=== PATIENT | female | born 1960 | race Caucasian/White ===

== ENCOUNTER 2019-01-04 12:33 | Emergency (ER) | payer MEDICAID ==
[~2019-01-04] VITALS: Ht 167.6 cm; Wt 72.7 kg
[2019-01-04 13:45] LABS: BASO # 0.1 (0.0-0.2); BASO % 0.6 % (0.0-2.0); EOS # 0.1 (0.0-0.7); EOS % 1.2 % (0-4.0); GRAN # 5.6 (1.4-6.5); HEMATOCRIT 44.3 % (37.0-47.0); HEMOGLOBIN 14.7 g/dl (12.5-16.0); LYMPH # 1.8 (1.2-3.4); LYMPH % 22.7 % (20.0-51.0); MEAN CELL VOLUME 94 fl (80.0-100.0); MEAN CORPUSCULAR HEMOGLOBIN 31 pg (27.0-31.0); MEAN CORPUSCULAR HGB CONC 33 g/dl (33.0-37.0); MEAN PLATELET VOLUME 11.4 fl (7.4-10.4); MONO # 0.5 (0.1-0.6); MONO % 6.3 % (1.7-9.3); PLATELET COUNT 145 K/mm3 (130-400); RED BLOOD COUNT 4.73 M/mm3 (4.10-5.30); REDCELL DISTRIBUTION WIDTH-CV 15.6 % (11.5-14.5)
[2019-01-04 13:50] LABS: ALBUMIN 4.2 gm/dL (3.5-5.0); BILIRUBIN,TOTAL 0.6 mg/dL (0.0-1.0); CALCIUM 9.5 mg/dL (8.4-10.2); CREATININE, serum 0.53 (0.52-1.25); POTASSIUM 3.9 mmol/L (3.4-5.0); TOTAL PROTEIN 7.1 gm/dL (6.4-8.2)
[2019-01-04 15:00] LABS: COLLECTION METHOD CLEAN CATCH
[2019-01-04 15:07] LABS: MUCOUS Present /lpf; PH 5 (5-8); URINE APPEARANCE Hazy; URINE BACTERIA Rare /hpf; URINE BILIRUBIN Negative (NEGATIVE); URINE BLOOD Negative (NEGATIVE); URINE COLOR Yellow; URINE GLUCOSE 3+ (NEGATIVE); URINE KETONE 2+ (NEGATIVE); URINE LEUKOCYTE ESTERASE Negative (NEGATIVE); URINE NITRATE Negative (NEGATIVE); URINE PROTEIN(semi-quant) Negative (NEGATIVE); URINE UROBILINOGEN Negative (NEGATIVE)
[2019-01-04 15:21] LABS: TRICYCLIC ANTIDEPRESS URINE NEGATIVE
[2019-01-04] MEDS ORDERED: EFFEXOR XR75 MG/CAP PO (15:37)
[2019-01-04] MEDS ORDERED: LASIX 20MG TABL20 MG PO (15:38)
[2019-01-04] MEDS ORDERED: COREG12.5 MG PO (15:38)
[2019-01-04] MEDS ORDERED: NEURONTIN300 MG/CAP PO (15:38)
[2019-01-04] MEDS ORDERED: LIPITOR 40MG TA40 MG PO (15:38)
[2019-01-04] MEDS ORDERED: ELIQUIS 5MG PO (15:38)
[2019-01-04] MEDS ORDERED: XTAMPZA ER9 MG PO (15:39)
[2019-01-04] MEDS ORDERED: BASAGLAR K100 UNIT/1 SQ (15:39)
[2019-01-04] MEDS ORDERED: KLONOPIN 0.5MG0.5 MG PO (15:39)
[2019-01-04] MEDS ORDERED: MIRAPEX0.5 MG PO (15:40)
[2019-01-04] MEDS ORDERED: NEURONTIN600 MG/TAB PO (15:40)
[2019-01-06 22:59] VITALS: BP 150/80; TEMP 18
[2019-01-07 10:42] VITALS: PULSE 75
== END 2019-01-07 10:45 | disposition home or self-care (01) ==
LOC: COL.ER 12:38
PROVIDERS: Family Medicine
DX: F23 Brief psychotic disorder (principal); E10.9 Type 1 diabetes mellitus without complications; Z79.01 Long term (current) use of anticoagulants; Z79.4 Long term (current) use of insulin
CPT/HCPCS: J1815; J7030

== ENCOUNTER 2019-02-19 11:27 | Inpatient (IN) | payer MEDICARE, MEDICAID ==
[~2019-02-19] VITALS: Ht 162.6 cm; Wt 91.6 kg
[~2019-02-19 11:27] MED LIST: BASAGLAR K100 UNIT/1 SQ; COREG12.5 MG PO; EFFEXOR XR75 MG/CAP PO; ELIQUIS 5MG PO; KLONOPIN 0.5MG0.5 MG PO; LASIX 20MG TABL20 MG PO; LIPITOR 40MG TA40 MG PO; MIRAPEX0.5 MG PO; NEURONTIN300 MG/CAP PO; NEURONTIN600 MG/TAB PO; XTAMPZA ER9 MG PO
[2019-02-19 12:14] LABS: BASO # 0.1 (0.0-0.2); BASO % 0.5 % (0.0-2.0); EOS % 0.2 % (0-4.0); GRAN # 15.1 (1.4-6.5); GRAN % 87.2 % (42.2-75.2); HEMATOCRIT 51.2 % (37.0-47.0); HEMOGLOBIN 16.3 g/dl (12.5-16.0); LYMPH # 1.3 (1.2-3.4); LYMPH % 7.2 % (20.0-51.0); MEAN CELL VOLUME 101 fl (80.0-100.0); MEAN CORPUSCULAR HEMOGLOBIN 32 pg (27.0-31.0); MEAN CORPUSCULAR HGB CONC 32 g/dl (33.0-37.0); MEAN PLATELET VOLUME 11.8 fl (7.4-10.4); MONO # 0.7 (0.1-0.6); MONO % 3.7 % (1.7-9.3); PLATELET COUNT 214 K/mm3 (130-400); RED BLOOD COUNT 5.08 M/mm3 (4.10-5.30); REDCELL DISTRIBUTION WIDTH-CV 15.8 % (11.5-14.5)
[2019-02-19 12:22] LABS: ALANINE AMINOTRANSFERASE 31 U/L (9-52); ALBUMIN 4.6 gm/dL (3.5-5.0); ALKALINE PHOSPHATASE 158 U/L (50-136); AST,SGOT 61 U/L (15-37); BILIRUBIN,TOTAL 0.4 mg/dL (0.0-1.0); BLOOD UREA NITROGEN 23 mg/dL (7-17); CALCIUM 9.2 mg/dL (8.4-10.2); CHLORIDE 99 mmol/L (98-107); CREATININE, serum 1.64 (0.52-1.25); SODIUM 136 mmol/L (137-145)
[2019-02-19 12:47] LABS: CARBON DIOXIDE < 5 mmol/L (22-30); GLUCOSE 788 mg/dL (74-106); POTASSIUM 6.5 mmol/L (3.4-5.0)
[2019-02-19 12:48] LABS: ACETONE,SERUM SMALL
--- NOTE | 2019-02-19 14:45 | NUR ---
Phone report received from MEGAN Robles RN. Pt arrived to ICU bed 3 via stretcher. Pt lethargic, briefly opens eyes to name. Pt transferred to ICU bed. Pt says she is hurting all over after transfer. Skin cool to touch. Warm blanket placed on patient for comfort. Remains on insulin gtt via right upper arm PICC. 16 Fr scott catheter placed by supervisor melt house via sterile technique with cloudy, yellow urine output. UA sent to lab. Pt has right above knee amputation. Discussed plan of care with pt r/t insulin gtt and accuchecks. Unable to undestand pt's response. Call light in reach.
[2019-02-19 14:46] LABS: ARTERIAL BLD GAS O2 SATURATION 85.1 % (92-100); ARTERIAL BLD GAS TCO2 CT 3.3; ARTERIAL BLOOD GAS BASE EXCESS -30.7 (-2-2); ARTERIAL BLOOD GAS HCO3 2.8 meq/L (22-26); ARTERIAL BLOOD GAS PO2 57.9 mmHg (80-100)
[2019-02-19 14:48] LABS: ARTERIAL BLOOD GAS PCO2 17.2 mmHg (35-45); ARTERIAL BLOOD GAS pH 6.83 (7.35-7.45)
[2019-02-19 15:05] LABS: COLLECTION METHOD CLEAN CATCH
[2019-02-19 15:15] LABS: BUDDING YEAST Present /hpf; MUCOUS Present /lpf; PH 5 (5-8); SQUAMOUS EPITHELIAL 0-2 /hpf; URINE APPEARANCE Cloudy; URINE BACTERIA Rare /hpf; URINE BILIRUBIN Negative (NEGATIVE); URINE BLOOD 2+ (NEGATIVE); URINE COLOR Yellow; URINE GLUCOSE 3+ (NEGATIVE); URINE KETONE 2+ (NEGATIVE); URINE LEUKOCYTE ESTERASE Negative (NEGATIVE); URINE NITRATE Negative (NEGATIVE); URINE PROTEIN(semi-quant) 2+ (NEGATIVE); URINE UROBILINOGEN Negative (NEGATIVE)
[2019-02-19 15:23] LABS: BLOOD UREA NITROGEN 26 mg/dL (7-17); CALCIUM 8.1 mg/dL (8.4-10.2); CHLORIDE 109 mmol/L (98-107); CREATININE, serum 1.66 (0.52-1.25); MAGNESIUM 2.5 mg/dL (1.6-2.3); PHOSPHOROUS 6.8 mg/dL (2.5-4.5); POTASSIUM 5.4 mmol/L (3.4-5.0); SODIUM 140 mmol/L (137-145)
[2019-02-19 15:32] LABS: GLUCOSE 577 mg/dL (74-106)
[2019-02-19 15:33] LABS: CARBON DIOXIDE < 5 mmol/L (22-30)
[2019-02-19 15:35] VITALS: BP 114/54; PULSE 94; TEMP 96.8
--- NOTE | 2019-02-19 15:40 | NUR ---
GLASS POLISHER payton was contacted by the patient's NCM from [facility] . [facility] reports the patient receives Home and Community Based services. [facility] requests to be updated on the patient's progress. registered nurse surgical services will continue to follow.
--- NOTE | 2019-02-19 15:45 | NUR ---
Pt's caregiver, Lynn at bedside. Discussed plan of care. Notified Dr Valerie robert is at bedside. He will come in to discuss pt's history with caregiver. Pt remains resting in bed and on insulin gtt. Pt is blind. Opens eyes briefly to name. squeezes hands on command.
[2019-02-19] MEDS ORDERED: OXY IR5 MG PO (16:15)
[2019-02-19] MEDS ORDERED: NOVOLOG FLEX100 U/ML SQ (16:18)
[2019-02-19 16:25] VITALS: BP 99/50; PULSE 998; TEMP 97.2
[2019-02-19 18:29] LABS: CREATININE, serum 1.36 (0.52-1.25); POTASSIUM 4.3 mmol/L (3.4-5.0)
--- NOTE | 2019-02-19 19:33 | NUR ---
Report given to CHAD Novak.
[2019-02-19 20:23] VITALS: BP 116/67; PULSE 95; TEMP 97.6
--- NOTE | 2019-02-19 20:30 | NUR ---
SPOKE WITH REGARDING PT'S MENTATION. PT WILL AWAKE AND FOLLOW SOME COMMANDS. PT WILL NOT ANSWER AT TIMES AND MOAN INCOMPREHENSIBLE. PT HAS A HISTORY OF ETOH ABUSE AND SUNDOWNING PER CAREGIVER. WILL CLOSELY WATCH LABS AND VSS FOR CHANGES.
[2019-02-19 20:43] LABS: CALCIUM 7.9 mg/dL (8.4-10.2); CREATININE, serum 1.21 (0.52-1.25)
--- NOTE | 2019-02-19 21:03 | NUR ---
[facility] RN NOTIFED OF CO2 OF 7. WILL NOTIFY CHARGING MANIPULATOR PHYSICIAN.
--- NOTE | 2019-02-19 22:09 | NUR ---
PAWAN BONILLA WITH [facility] NOTIFIED OF PT'S BG DROPPED FROM 354 AT 2100 TO 195 AT 2204. INSULIN DRIP CHANGED TO 2 UNITS/HR PER PROTOCOL. AWAITING ORDERS
[2019-02-19 22:23] LABS: CREATININE, serum 0.81 (0.52-1.25)
[2019-02-19 22:25] LABS: POTASSIUM 2.9 mmol/L (3.4-5.0)
--- NOTE | 2019-02-19 22:32 | NUR ---
PAWAN BONILLA WITH [facility] NOTIFIED OF K LEVEL 2.9. STATES SHE WILL NOTIFY . AWAITING ORDERS.
--- NOTE | 2019-02-19 22:40 | NUR ---
CALLED THIS RN AND DISCUSSED PT'S IVF, K LEVEL, AND NA LEVEL. WILL CHANGE IVF TO D5NS AND ADD POTASSIUM REPLACEMENT ORDERS.
[2019-02-20 00:05] VITALS: BP 137/89; PULSE 92; TEMP 99.1
[2019-02-20 01:25] LABS: CALCIUM 7.9 mg/dL (8.4-10.2); CREATININE, serum 0.94 (0.52-1.25); POTASSIUM 4.8 mmol/L (3.4-5.0)
--- NOTE | 2019-02-20 01:39 | NUR ---
PAWAN BONILLA WITH [facility] NOTIFIED OF NA LEVEL FROM 131-143 AND C02 FROM 7-13. STATES WILL NOTIFY . AWAITING ORDERS.
--- NOTE | 2019-02-20 01:51 | NUR ---
SPOKE WITH REGARDING PT NA AND CO2 LEVEL. WILL CHANGE IVF BACK TO D5 1/2NS.
[2019-02-20 04:05] VITALS: BP 125/70; PULSE 96; TEMP 98.1
[2019-02-20 04:18] LABS: CALCIUM 7.8 mg/dL (8.4-10.2); CREATININE, serum 0.83 (0.52-1.25); POTASSIUM 4.1 mmol/L (3.4-5.0)
--- NOTE | 2019-02-20 04:38 | NUR ---
PT WENT INTO AFIB UP TO THE 160'S WHILE SLEEPING. BP 117/68. PT BACK INTO SR BUT OCCASSIONALLY STILL FLIPPING INTO AFIB 110'S. PAWAN BONILLA WITH [facility] NOTIFIED. STATES WILL NOTIFY . AWAITING ORDERS. WILL CONTINUE TO MONITOR.
[2019-02-20 06:09] LABS: BASO % 0.2 % (0.0-2.0); EOS % 0.1 % (0-4.0); GRAN # 13.5 (1.4-6.5); GRAN % 85.9 % (42.2-75.2); HEMATOCRIT 38.5 % (37.0-47.0); LYMPH # 0.9 (1.2-3.4); LYMPH % 5.4 % (20.0-51.0); MEAN CORPUSCULAR HGB CONC 35 g/dl (33.0-37.0); MONO # 1.2 (0.1-0.6); MONO % 7.8 % (1.7-9.3); PLATELET COUNT 154 K/mm3 (130-400); RED BLOOD COUNT 4.23 M/mm3 (4.10-5.30); REDCELL DISTRIBUTION WIDTH-CV 15.1 % (11.5-14.5)
[2019-02-20 06:14] LABS: HEMOGLOBIN 13.4 g/dl (12.5-16.0); MEAN CELL VOLUME 91 fl (80.0-100.0); MEAN CORPUSCULAR HEMOGLOBIN 32 pg (27.0-31.0)
[2019-02-20 06:26] LABS: CALCIUM 7.9 mg/dL (8.4-10.2); CREATININE, serum 0.74 (0.52-1.25); POTASSIUM 3.4 mmol/L (3.4-5.0)
[2019-02-20 08:00] VITALS: BP 96/86; PULSE 87; TEMP 100.4
[2019-02-20 08:46] LABS: CREATININE, serum 0.73 (0.52-1.25); POTASSIUM 3.9 mmol/L (3.4-5.0)
--- NOTE | 2019-02-20 09:06 | NUR ---
THIS AM PATIENT MOVES ABOUT ROLLING BACK AND FORTH MOANING, PATIENT DOES FEEL PAIN WHEN HELD FOR B/P CHECK
--- NOTE | 2019-02-20 09:50 | NUR ---
Initial visit; Patient unresponsive to Client Advisor who offered God's Blessings.
[2019-02-20 10:30] LABS: CALCIUM 8.2 mg/dL (8.4-10.2); CREATININE, serum 0.66 (0.52-1.25); POTASSIUM 4.3 mmol/L (3.4-5.0)
[2019-02-20 12:00] VITALS: BP 121/78; PULSE 94; TEMP 98.5
[2019-02-20 13:37] LABS: TRICYCLIC ANTIDEPRESS URINE NEGATIVE
[2019-02-20 16:00] VITALS: BP 107/64; PULSE 84; TEMP 98.3
[2019-02-20 18:46] LABS: CALCIUM 8.1 mg/dL (8.4-10.2); CREATININE, serum 0.55 (0.52-1.25)
[2019-02-20 20:00] VITALS: BP 113/47; PULSE 87; TEMP 99
[2019-02-21] VITALS: BP 118/93; PULSE 84; TEMP 98.5
--- NOTE | 2019-02-21 | NUR ---
Insulin gtt discontinued per provider order.
--- NOTE | 2019-02-21 02:41 | NUR ---
PT has been restless throughout the evening, improves with repositioning. Occasionally responds to questions but is usually one worded and is very unintelligible, grunts and groans most of the time. PT will try to pull herself up to reposition but does not get very far. Repositioning, mouth swabs, and blankets have been offered. Will continue to monitor.
[2019-02-21 04:00] VITALS: BP 133/81; PULSE 86; TEMP 98.7
[2019-02-21 05:16] LABS: BASO % 0.1 % (0.0-2.0); GRAN # 7.7 (1.4-6.5); GRAN % 83.2 % (42.2-75.2); LYMPH # 1.1 (1.2-3.4); LYMPH % 11.5 % (20.0-51.0); MEAN CELL VOLUME 91 fl (80.0-100.0); MEAN CORPUSCULAR HGB CONC 35 g/dl (33.0-37.0); MEAN PLATELET VOLUME 10.9 fl (7.4-10.4); MONO # 0.4 (0.1-0.6); MONO % 4.8 % (1.7-9.3); PLATELET COUNT 88 K/mm3 (130-400); REDCELL DISTRIBUTION WIDTH-CV 15.5 % (11.5-14.5)
[2019-02-21 05:19] LABS: HEMATOCRIT 32.7 % (37.0-47.0); HEMOGLOBIN 11.3 g/dl (12.5-16.0); MEAN CORPUSCULAR HEMOGLOBIN 31 pg (27.0-31.0)
[2019-02-21 05:23] LABS: ALBUMIN 2.4 gm/dL (3.5-5.0); BILIRUBIN,TOTAL 0.3 mg/dL (0.0-1.0); CALCIUM 7.1 mg/dL (8.4-10.2); CREATININE, serum 0.42 (0.52-1.25); MAGNESIUM 1.4 mg/dL (1.6-2.3); TOTAL PROTEIN 4.9 gm/dL (6.4-8.2)
[2019-02-21 05:26] LABS: POTASSIUM 2.7 mmol/L (3.4-5.0)
[2019-02-21 05:44] LABS: BASO % 0.2 % (0.0-2.0); GRAN # 7.4 (1.4-6.5); GRAN % 82.2 % (42.2-75.2); HEMOGLOBIN 12.3 g/dl (12.5-16.0); LYMPH # 1.1 (1.2-3.4); LYMPH % 12.3 % (20.0-51.0); MEAN CELL VOLUME 91 fl (80.0-100.0); MEAN CORPUSCULAR HEMOGLOBIN 32 pg (27.0-31.0); MEAN CORPUSCULAR HGB CONC 35 g/dl (33.0-37.0); MEAN PLATELET VOLUME 10.7 fl (7.4-10.4); MONO # 0.5 (0.1-0.6); MONO % 5.1 % (1.7-9.3); PLATELET COUNT 89 K/mm3 (130-400); RED BLOOD COUNT 3.91 M/mm3 (4.10-5.30); REDCELL DISTRIBUTION WIDTH-CV 15.8 % (11.5-14.5)
[2019-02-21 05:45] LABS: HEMATOCRIT 35.6 % (37.0-47.0)
[2019-02-21 05:52] LABS: ALBUMIN 2.8 gm/dL (3.5-5.0); BILIRUBIN,TOTAL 0.3 mg/dL (0.0-1.0); CALCIUM 8.4 mg/dL (8.4-10.2); CREATININE, serum 0.49 (0.52-1.25); MAGNESIUM 1.6 mg/dL (1.6-2.3); POTASSIUM 3.1 mmol/L (3.4-5.0); TOTAL PROTEIN 5.6 gm/dL (6.4-8.2)
[2019-02-21 07:14] VITALS: BP 135/70; PULSE 76; TEMP 97.7
--- NOTE | 2019-02-21 07:15 | NUR ---
Bedside shift report received from CHAD Peterson. Patient is lying on her left side in bed, calm, but grunting and slight tremor visible. Full assessment completed. Vital signs stable. Bed in lowest position. Side rails up x3. Call light within reach.
--- NOTE | 2019-02-21 08:00 | NUR ---
Full assessment completed. Patient noted to have a right AKA as well as is completely blind. Patient does not open eyes on command, but pupils assessed. Patient continues to only response with grunts and moans, does not verbalize responses at this time. Patient is repositioned to assist in oxygen saturation. O2 sats dropped to 85% and increased to 94-95% post repositioning. Patient will not tolerate nasal cannula at this time.
--- NOTE | 2019-02-21 09:12 | NUR ---
Patient's oxygen saturation drops to 85% again. Attempted to apply 2L nasal cannula, but patient continuously removes oxygen tubing. At this point, oxygen saturation is back up to 94-97%.
[2019-02-21 12:00] VITALS: BP 148/73; PULSE 82; TEMP 98
--- NOTE | 2019-02-21 13:05 | NUR ---
VP PATIENT student contacted the patient's son, Antonio to do an intial intake. The patient lives alone in [place]. The patient receives 24-hour in home care. The patient is wheelchair bound and receives assist with all ADLs. The patient's PCP is Dr. Bain in [place] and Antonio was not sure which pharmacy delivers patient's medications. The patient does not have advanced directives. Antonio reports that he and Nai, the patient's daughter were DPOA-HC but patient revoked it a few months ago. Antonio reports the patient thought he and Nai "only wanted to put her way in a fpc." The patient is not . Antonio and Nai are her only children. 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 This followed by ketoacidocis and the amputation. rehabilitation services aide will continue to follow to ensure a safe discharge. Nai, daughter Antonio, son Lynn, amberly caregiver OMER Diop for [facility]
--- NOTE | 2019-02-21 14:55 | NUR ---
GRAPHICS EDIT TECHNICIAN student attempted to contact Jadon to ask if she needed patient updates, left message. Social servies will continue to monitor.
[2019-02-21 16:00] VITALS: BP 135/74; PULSE 89; TEMP 98.4
--- NOTE | 2019-02-21 16:00 | NUR ---
Patient's oxygen saturations dropped to 83% while patient was sleeping. Attempted to apply nasal cannula at this time, but patient refuses and continues to take off cannula and bat at the nurses hands. Since awakened, patient's oxygen saturation increases to 98% on room air.
--- NOTE | 2019-02-21 19:00 | NUR ---
Bedside shift report given to CHAD Casper. Patient is restless and continuously attempting to get out of bed. Patient reoriented frequently but does not follow commands. Bed alarm on and functioning, bed in lowest position, side rails up x3, call light within reach.
[2019-02-21 20:00] VITALS: BP 137/72; PULSE 84; TEMP 98.1
--- NOTE | 2019-02-21 20:15 | NUR ---
PT'S HS BG 88. PT HAD BEEN HYPOGLYCEMIC DURING THE DAY. D5NS RESTARTED THIS EVENING. [facility] CALLED REGARDING HS DOSE OF LEVIMIR. ORDER TO HOLD PER . WILL CONTINUE WITH D5NS AND ACCUCHECKS Q4HRS.
--- NOTE | 2019-02-21 20:51 | NUR ---
PT DESATED TO 80% ON RA WHILE SLEEPING. PT PLACED ON 3L NC AND NOW SATING 99. WILL CONTINUE TO MONITOR.
[2019-02-22] VITALS: BP 128/75; PULSE 87; TEMP 97.6
[2019-02-22 04:05] VITALS: BP 120/74; PULSE 107; TEMP 98.7
[2019-02-22 06:31] LABS: BASO % 0.6 % (0.0-2.0); EOS % 0.2 % (0-4.0); GRAN # 4.9 (1.4-6.5); GRAN % 76.3 % (42.2-75.2); HEMOGLOBIN 12.5 g/dl (12.5-16.0); LYMPH % 16.1 % (20.0-51.0); MEAN CELL VOLUME 93 fl (80.0-100.0); MEAN CORPUSCULAR HEMOGLOBIN 31 pg (27.0-31.0); MEAN CORPUSCULAR HGB CONC 34 g/dl (33.0-37.0); MEAN PLATELET VOLUME 11.7 fl (7.4-10.4); MONO # 0.4 (0.1-0.6); MONO % 6.5 % (1.7-9.3); PLATELET COUNT 77 K/mm3 (130-400); RED BLOOD COUNT 3.98 M/mm3 (4.10-5.30); REDCELL DISTRIBUTION WIDTH-CV 16.4 % (11.5-14.5)
[2019-02-22 06:39] LABS: CALCIUM 8.4 mg/dL (8.4-10.2); CREATININE, serum 0.45 (0.52-1.25); HEMATOCRIT 36.9 % (37.0-47.0)
[2019-02-22 06:43] LABS: POTASSIUM 2.9 mmol/L (3.4-5.0)
[2019-02-22 08:00] VITALS: BP 120/52; PULSE 92; TEMP 98.6
--- NOTE | 2019-02-22 11:32 | NUR ---
AT BEDSIDE WITH TEAM TO ROUND.
[2019-02-22 12:00] VITALS: BP 112/59; PULSE 81; TEMP 99.8
[2019-02-22 16:00] VITALS: BP 102/69; PULSE 81
--- NOTE | 2019-02-22 19:00 | NUR ---
RECEIVED REPORT FROM CHAD LUNDY. PT SLEEPING AT THIS TIME. VSS. PT ON 2L VIA NC. FC PATENT DRAINING TO GRAVITY. BEDALARM IN PLACE. CALL LIGHT WITHIN REACH.
[2019-02-22 20:00] VITALS: BP 110/64; PULSE 72; TEMP 99.1
--- NOTE | 2019-02-22 21:05 | NUR ---
PT AROUSES TO NURSE AND SITS UP IN BED. PT HAS A FULL CONVERSATION WITH NURSE ABOUT HOW SHE GOT TO THE HOSPITAL AND WHAT HER BLOOD SUGARS ARE NOW. PT RECALLS HER INSURANCE CAUSING A PROBLEM WITH GETTING HER LONG ACTING INSULIN AT HOME AND HOW SHE RAN OUT. PT STATES SHE DOES NOT REMEMBER COMING TO THE HOSPITAL. PT ABLE TO ANSWER ALL ORIENTATION QUESTIONS. PT ABLE TO ASK FOR APPLESAUCE AND FEED SELF AFTER ASSISTING WITH SET UP. PT COOPERATIVE WITH CARE AND REMINDED ABOUT HER FC. PT TAKES OFF OXYGEN AT THIS TIME. POX NOTED TO BE > 92% AND NO ACUTE S/S OF RESP DISTRESS NOTED.
[2019-02-23] VITALS (8 sets, daily range): BP systolic 96–122; BP diastolic 45–75; PULSE 76–88; TEMP 97.6–98.6
--- NOTE | 2019-02-23 08:00 | NUR ---
Shift assessment complete at this time. Plan of care reviewed at bedside with patient. Additional time taken to address any other needs or concerns. Vitals stable at this time. Pt denies pain or any other discomfort. Pt expresses desire to possibly leave hospital AMA. After further discussion with patient regarding this matter, the patient agrees to wait untill the attending physician has arrived to round and conduct further discussion with them at that point. Pt resting in chair, call light within reach. Will continue to monitor.
[2019-02-23 09:33] LABS: BASO # 0.1 (0.0-0.2); BASO % 0.8 % (0.0-2.0); EOS # 0.1 (0.0-0.7); EOS % 1.5 % (0-4.0); GRAN # 4.7 (1.4-6.5); GRAN % 66.2 % (42.2-75.2); HEMATOCRIT 41.6 % (37.0-47.0); HEMOGLOBIN 13.9 g/dl (12.5-16.0); LYMPH # 1.8 (1.2-3.4); LYMPH % 24.6 % (20.0-51.0); MEAN CELL VOLUME 93 fl (80.0-100.0); MEAN CORPUSCULAR HEMOGLOBIN 31 pg (27.0-31.0); MEAN CORPUSCULAR HGB CONC 33 g/dl (33.0-37.0); MEAN PLATELET VOLUME 11.8 fl (7.4-10.4); MONO # 0.5 (0.1-0.6); MONO % 6.6 % (1.7-9.3); PLATELET COUNT 98 K/mm3 (130-400); RED BLOOD COUNT 4.46 M/mm3 (4.10-5.30); REDCELL DISTRIBUTION WIDTH-CV 16.4 % (11.5-14.5)
[2019-02-23 09:36] LABS: CREATININE, serum 0.44 (0.52-1.25); POTASSIUM 3.4 mmol/L (3.4-5.0)
--- NOTE | 2019-02-23 13:30 | NUR ---
Pt up to medical unit from ICU escorted by Salvador BONILLA. Pt has RBKA and pivot transfer to bed was unsteady. Pt on fall precaution and alcohol detox protocol. Pt BS 306 and pt food brought up from ICU with pt. Pt given insulin per orders. Pt lungs clear and pt alert and oriented. Pt neuro WNL. Pt PICC patent no redness or infiltration noted. Pt has call light in reach and pt oriented to room d/t blindness. Pt room accross from nurse station and bed alarm on.
--- NOTE | 2019-02-23 21:30 | NUR ---
Patient assessed at this time. Alert and oriented x 4, and able to make needs known. Patient blind. Reports pain to criss LEZAMA. Received scheduled Neurontin per orders. Double lumen PICC to ANNETTEE. Dressing to area is CDI. Denies having SOB and dyspnea. Respirations even and unlabored. LS CTA. HRR. Capillary refill less than 3 seconds. Non-tenting skin turgor. BSAx4. Abdomen soft and non-tender. 1+ edema LLE. Voices no questions, needs, or concerns at this time. Resting in bed with call light within reach.
[2019-02-24] VITALS (7 sets, daily range): BP systolic 99–128; BP diastolic 49–59; PULSE 76–91; TEMP 97.5–98.1
[2019-02-24 06:29] LABS: BASO # 0.1 (0.0-0.2); BASO % 0.9 % (0.0-2.0); EOS # 0.2 (0.0-0.7); EOS % 3.1 % (0-4.0); GRAN # 3.6 (1.4-6.5); GRAN % 54.7 % (42.2-75.2); HEMATOCRIT 39.8 % (37.0-47.0); HEMOGLOBIN 13.3 g/dl (12.5-16.0); LYMPH # 2.1 (1.2-3.4); LYMPH % 32.3 % (20.0-51.0); MEAN CELL VOLUME 95 fl (80.0-100.0); MEAN CORPUSCULAR HEMOGLOBIN 32 pg (27.0-31.0); MEAN CORPUSCULAR HGB CONC 33 g/dl (33.0-37.0); MEAN PLATELET VOLUME 11.7 fl (7.4-10.4); MONO # 0.6 (0.1-0.6); MONO % 8.5 % (1.7-9.3); PLATELET COUNT 94 K/mm3 (130-400); REDCELL DISTRIBUTION WIDTH-CV 16.4 % (11.5-14.5)
[2019-02-24 06:47] LABS: CALCIUM 8.9 mg/dL (8.4-10.2); CREATININE, serum 0.46 (0.52-1.25); MAGNESIUM 2.1 mg/dL (1.6-2.3); POTASSIUM 3.8 mmol/L (3.4-5.0)
--- NOTE | 2019-02-24 06:51 | NUR ---
Patient has not been scoring on detox protocol. Has been able to sleep well. Voices no questions, needs, or concerns. Call light is within reach.
--- NOTE | 2019-02-24 09:00 | NUR ---
Pt alert and oriented. Pt pain managed with scheduled medications. Pt has R above the knee amputation. Pt pivots to bedside commode with 1 assist. Pt PICC patent, intact, no redness or infiltration noted. Pt score 0 on detox protocol. Pt has call light in reach. Pt had low blood sugar this am during shift change. Kimmy BONILLA gave pt orange juice. BS rechecked and was 128.
--- NOTE | 2019-02-24 15:13 | NUR ---
Pt stable this afternoon. Pt's blood sugar at noon was 361. Pt had breakfast and diet soda. Pt asks often for food or drinks. Pt has pain that is chronic in L leg managed with scheduled medication. Pt PICC remains patent. Pt requesting flu vaccine today. Pt has call light in reach and denies needs at this time. Pt continues to score 0 on alcohol detox protocol.
--- NOTE | 2019-02-24 17:48 | NUR ---
Pt PICC removed via sterile technique protocol and dressing applied. Pt tolerated without incident. Tip intact and 38cm in length. No bleeding. Pt given PICC discharge instructions with her aide Radha present. Pt also given discharge instructions to include insulin sliding scale with copy of scale in pt discharge folder and shown to pt and her aide. Pt educated on diabetes management, medications, and follow up appointments. Pt and pt's teacher home therapy Radha stated understanding of education and instructions. Pt escorted out by aide via wheelchair.
--- NOTE | 2019-02-24 19:27 | NUR ---
Pt called and stated pharmacy that [facility] that was supposed to be open until 10pm per internet is actually closed so pt unable to get long acting insulin which pt needs 35 units of per discharge instructions. Alma Rosa BOLANOS notified and working with household worker to get an answer for the patient as to what she needs to do.
--- NOTE | 2019-02-24 19:43 | NUR ---
Alma Rosa BOLANOS updated this nurse to have pt come to ED and get Levemir injection per discharge instructions per general warehouse worker Damien BONILLA. Pt called and updated and she will come to ER and get insulin injection.
[2019-02-24] MEDS ORDERED: BASAGLAR K100 UNIT/1 SQ (20:12)
[2019-02-24] MEDS ORDERED: NOVOLOG FLEX100 U/ML SQ (20:13)
== END 2019-02-24 17:50 | disposition home or self-care (01) | DRG 637 ==
LOC: COL.ER 11:27 → ICU 13:30 → MEDICAL 02-23 14:06
PROVIDERS: Anesthesiology Critical Care Medicine; Family Medicine; Internal Medicine Critical Care Medicine; Student in an Organized Health Care Education/Training Program; ADMIT Hospitalist
PROC: 02HV33Z Insertion of Infusion Device into Superior Vena Cava, Percutaneous Approach (ICD-10-PCS; principal; 2019-02-19)
PROC: 02PYX3Z Removal of Infusion Device from Great Vessel, External Approach (ICD-10-PCS; 2019-02-19)
DX: E10.10 Type 1 diabetes mellitus with ketoacidosis without coma (principal); G93.41 Metabolic encephalopathy; F10.239 Alcohol dependence with withdrawal, unspecified; R65.10 Systemic inflammatory response syndrome (SIRS) of non-infectious origin without acute organ dysfunction; F17.210 Nicotine dependence, cigarettes, uncomplicated; E87.5 Hyperkalemia; N28.89 Other specified disorders of kidney and ureter; F32.9 Major depressive disorder, single episode, unspecified; F41.9 Anxiety disorder, unspecified; E78.5 Hyperlipidemia, unspecified; E10.42 Type 1 diabetes mellitus with diabetic polyneuropathy; G25.81 Restless legs syndrome; Z96.659 Presence of unspecified artificial knee joint; Z89.611 Acquired absence of right leg above knee; Z90.710 Acquired absence of both cervix and uterus; Z79.01 Long term (current) use of anticoagulants; Z79.891 Long term (current) use of opiate analgesic; Z79.4 Long term (current) use of insulin; Z88.0 Allergy status to penicillin; Z88.8 Allergy status to other drugs, medicaments and biological substances; I25.2 Old myocardial infarction; Z86.73 Personal history of transient ischemic attack (TIA), and cerebral infarction without residual deficits; Z86.718 Personal history of other venous thrombosis and embolism
CPT/HCPCS: 99223-AI; 99233-AI; 99239; C1751; C9113; J0696; J1644; J1650; J1815; J2060; J3411; J3480; J7030; J7042

== ENCOUNTER 2019-04-02 16:22 | Emergency (ER) | payer MEDICARE, MEDICAID ==
[~2019-04-02 16:22] MED LIST changes: +NOVOLOG FLEX100 U/ML SQ; +OXY IR5 MG PO
[2019-04-02 16:27] VITALS: TEMP 96.5
[2019-04-02 16:45] LABS: BASO # 0.1 (0.0-0.2); BASO % 1.2 % (0.0-2.0); EOS # 0.3 (0.0-0.7); EOS % 2.5 % (0-4.0); GRAN # 5.1 (1.4-6.5); GRAN % 49.2 % (42.2-75.2); HEMATOCRIT 46.8 % (37.0-47.0); HEMOGLOBIN 15.2 g/dl (12.5-16.0); LYMPH # 3.9 (1.2-3.4); LYMPH % 37.6 % (20.0-51.0); MEAN CELL VOLUME 97 fl (80.0-100.0); MEAN CORPUSCULAR HEMOGLOBIN 32 pg (27.0-31.0); MEAN CORPUSCULAR HGB CONC 33 g/dl (33.0-37.0); MEAN PLATELET VOLUME 11.7 fl (7.4-10.4); MONO % 9.1 % (1.7-9.3); PLATELET COUNT 162 K/mm3 (130-400); RED BLOOD COUNT 4.82 M/mm3 (4.10-5.30); REDCELL DISTRIBUTION WIDTH-CV 14.7 % (11.5-14.5)
[2019-04-02 17:32] LABS: ALBUMIN 3.6 gm/dL (3.5-5.0); CALCIUM 8.6 mg/dL (8.4-10.2); CREATININE, serum 0.61 (0.52-1.25); TOTAL PROTEIN 6.6 gm/dL (6.4-8.2)
[2019-04-02 17:33] LABS: BILIRUBIN,TOTAL 0.2 mg/dL (0.0-1.0)
[2019-04-02 17:58] VITALS: BP 101/58; PULSE 68
== END 2019-04-02 18:10 | disposition home or self-care (01) ==
LOC: COL.ER 16:22
PROVIDERS: Emergency Medicine
DX: E11.649 Type 2 diabetes mellitus with hypoglycemia without coma (principal); E78.00 Pure hypercholesterolemia, unspecified; F17.210 Nicotine dependence, cigarettes, uncomplicated; Z79.4 Long term (current) use of insulin
CPT/HCPCS: J1610; J7030

== ENCOUNTER 2019-05-20 06:15 | Day surgery (SDC) | payer MEDICARE, MEDICAID ==
[~2019-05-20] VITALS: Ht 162.6 cm; Wt 91.7 kg
[2019-05-20] MEDS ORDERED: XTAMPZA ER13.5 MG PO (07:06)
[2019-05-20] MEDS ORDERED: LASIX 20MG TABL20 MG PO (07:07)
[2019-05-20] MEDS ORDERED: COREG12.5 MG PO (07:07)
[2019-05-20] MEDS ORDERED: ROXICODONE 55 MG/TAB PO (07:08)
[2019-05-20 07:09] VITALS: BP 117/57; PULSE 77; TEMP 99.4
[2019-05-20] MEDS ORDERED: LANTUS100 U/ML PO (07:09)
[2019-05-20 09:35] VITALS: BP 125/78; PULSE 71; TEMP 98.4
--- NOTE | 2019-05-20 09:35 | NUR ---
Patient brought back from End[facility] suites to bay 1 via cart. Pivoted to chair with one assist. Vital signs stable. Warm blanket provided. IV infusing without difficulty. Pt denies any pain or nausea. Requesting muffin and apple sauce. Aid will be back soon to bring pt home. Call garcía within reach, will continue to monitor.
[2019-05-20 09:50] VITALS: BP 120/70; PULSE 74; TEMP 98.4
[2019-05-20 10:05] VITALS: BP 118/71; PULSE 73
--- NOTE | 2019-05-20 10:05 | NUR ---
Patient states she feels ready to go home. Aid at bedside to help get dressed.
--- NOTE | 2019-05-20 10:20 | NUR ---
Vital signs stable. Discharge instructions reviewed with patient and aid. All questions answered. Pt wheeled down to lobby. To be driven home by home health aid.
== END 2019-05-20 10:25 | disposition home or self-care (01) ==
LOC: SDCO 06:15
DX: Z12.11 Encounter for screening for malignant neoplasm of colon (principal); K62.89 Other specified diseases of anus and rectum; K64.4 Residual hemorrhoidal skin tags; I25.10 Atherosclerotic heart disease of native coronary artery without angina pectoris; I25.2 Old myocardial infarction; I50.9 Heart failure, unspecified; G89.29 Other chronic pain; E11.22 Type 2 diabetes mellitus with diabetic chronic kidney disease; N18.6 End stage renal disease; F32.9 Major depressive disorder, single episode, unspecified; F41.9 Anxiety disorder, unspecified; Z99.2 Dependence on renal dialysis; Z96.652 Presence of left artificial knee joint; Z90.710 Acquired absence of both cervix and uterus; Z79.01 Long term (current) use of anticoagulants; Z87.891 Personal history of nicotine dependence; Z86.718 Personal history of other venous thrombosis and embolism; Z88.1 Allergy status to other antibiotic agents
CPT/HCPCS: J1815; J2704; J7030

== ENCOUNTER 2019-09-10 18:48 | Emergency (ER) | payer MEDICARE, MEDICAID ==
[~2019-09-10] VITALS: Ht 165.1 cm; Wt 90.9 kg
[~2019-09-10 18:48] MED LIST changes: +LANTUS100 U/ML PO; +ROXICODONE 55 MG/TAB PO; +XTAMPZA ER13.5 MG PO
[2019-09-10 19:25] LABS: BASO # 0.1 (0.0-0.2); BASO % 0.9 % (0.0-2.0); EOS # 0.2 (0.0-0.7); EOS % 1.8 % (0-4.0); GRAN # 5.5 (1.4-6.5); GRAN % 64.2 % (42.2-75.2); HEMATOCRIT 45.3 % (37.0-47.0); HEMOGLOBIN 15.1 g/dl (12.5-16.0); LYMPH % 23.6 % (20.0-51.0); MEAN CELL VOLUME 96 fl (80.0-100.0); MEAN CORPUSCULAR HEMOGLOBIN 32 pg (27.0-31.0); MEAN CORPUSCULAR HGB CONC 33 g/dl (33.0-37.0); MEAN PLATELET VOLUME 10.9 fl (7.4-10.4); MONO # 0.8 (0.1-0.6); PLATELET COUNT 139 K/mm3 (130-400); RED BLOOD COUNT 4.74 M/mm3 (4.10-5.30); REDCELL DISTRIBUTION WIDTH-CV 15.2 % (11.5-14.5)
[2019-09-10 20:21] LABS: ALBUMIN 4.3 gm/dL (3.5-5.0); BILIRUBIN,TOTAL 0.7 mg/dL (0.0-1.0); C-REACTIVE PROTEIN 1.4 mg/dL (0.0-0.9); CALCIUM 9.5 mg/dL (8.4-10.2); CREATININE, serum 0.55 (0.52-1.25); POTASSIUM 4.3 mmol/L (3.4-5.0)
[2019-09-10 21:01] VITALS: BP 112/53; PULSE 72
== END 2019-09-10 21:01 | disposition home or self-care (01) ==
LOC: COL.ER 18:48
PROVIDERS: Emergency Medicine
DX: E11.649 Type 2 diabetes mellitus with hypoglycemia without coma (principal); T38.3X5A Adverse effect of insulin and oral hypoglycemic [antidiabetic] drugs, initial encounter; I10 Essential (primary) hypertension; F32.9 Major depressive disorder, single episode, unspecified; F17.210 Nicotine dependence, cigarettes, uncomplicated; Z79.4 Long term (current) use of insulin; Z79.891 Long term (current) use of opiate analgesic; Z89.511 Acquired absence of right leg below knee
CPT/HCPCS: J7030

== ENCOUNTER → 2020-05-15 | Outpatient (CLI) | payer MEDICARE, MEDICAID ==
[2020-05-15 11:47] LABS: ALBUMIN 3.5 gm/dL (3.5-5.0); BILIRUBIN,TOTAL 0.4 mg/dL (0.0-1.0); CHOLESTEROL RISK RATIO 1.8; CREATININE, serum 0.59 (0.52-1.25); POTASSIUM 4.2 mmol/L (3.4-5.0); TOTAL PROTEIN 6.3 gm/dL (6.4-8.2)
== END ==
LOC: ZCOL.LAB 08:24
PROVIDERS: Family Medicine
DX: E10.39 Type 1 diabetes mellitus with other diabetic ophthalmic complication (principal)

== ENCOUNTER → 2020-09-18 | Outpatient (CLI) | payer MEDICARE, MEDICAID | LOC: MC.RAD 14:11 | DX: Z12.31 Encounter for screening mammogram for malignant neoplasm of breast (principal); N63.20 Unspecified lump in the left breast, unspecified quadrant ==

== ENCOUNTER → 2020-09-28 | Outpatient (CLI) | payer MEDICARE, MEDICAID | LOC: MC.RAD 13:00 | DX: N63.21 Unspecified lump in the left breast, upper outer quadrant (principal) ==

== ENCOUNTER → 2021-05-28 | Outpatient (CLI) | payer MEDICARE, MEDICAID | LOC: MC.RAD 10:47 | DX: N63.20 Unspecified lump in the left breast, unspecified quadrant (principal) ==